=== PATIENT | male | born 1960 | race Caucasian/White ===

== ENCOUNTER → 2020-07-04 | Outpatient (CLI) | payer BC ==
--- NOTE | 2020-07-04 14:19 | REP ---
INDICATION: PAIN RIGHT HIP. COMPARISON: None. TECHNIQUE: AP pelvis, AP and frogleg views right hip. FINDINGS: There is no acute fracture or dislocation. There are moderately severe arthritic changes of the right hip joint with moderately severe superior joint space narrowing with associated subchondral sclerosis. Moderate spurring. There is relatively mild arthritic change at the left hip joint with mild joint space narrowing, subchondral sclerosis and spurring. 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 A phlebolith is seen in the left pelvis. IMPRESSION: Moderately severe arthritic changes right hip joint. Mild arthritic changes left hip point. <Electronically signed by Cresencio Ardon > 07/04/20 0569
== END ==
LOC: M SOG 13:30
PROVIDERS: ATTEND Family Medicine
DX: M16.0 Bilateral primary osteoarthritis of hip (principal)

== ENCOUNTER → 2021-02-14 | Outpatient (REF) | payer BC | LOC: M LAB REF 17:20 | PROVIDERS: ATTEND Physician Assistant | DX: D22.5 Melanocytic nevi of trunk (principal) ==

== ENCOUNTER → 2022-07-29 | Outpatient (CLI) | payer BC | LOC: M SOG 08:05 | PROVIDERS: ATTEND Orthopaedic Surgery | DX: M25.551 Pain in right hip (principal); Z53.8 Procedure and treatment not carried out for other reasons ==

== ENCOUNTER → 2024-04-27 | Outpatient (CLI) | payer BC | LOC: M SOG 07:45 | PROVIDERS: ATTEND Physician Assistant | DX: M70.71 Other bursitis of hip, right hip (principal) ==

== ENCOUNTER → 2024-05-04 | Outpatient (CLI) | payer BC | LOC: M PLAIMG 10:12 | PROVIDERS: ATTEND Physician Assistant | DX: M16.31 Unilateral osteoarthritis resulting from hip dysplasia, right hip (principal); M87.851 Other osteonecrosis, right femur; M25.451 Effusion, right hip; M67.451 Ganglion, right hip ==

== ENCOUNTER → 2024-11-17 | Outpatient (CLI) | payer BC ==
[~2024-11-17] MED LIST: AMLO1TAB24; LISI10TA24; LISI20TA33; RELU120T PO; TADA10TA
== END ==
LOC: M ONCR 10:59
PROVIDERS: ATTEND General Practice
DX: C61 Malignant neoplasm of prostate (principal); N52.31 Erectile dysfunction following radical prostatectomy; Z72.89 Other problems related to lifestyle; Z79.818 Long term (current) use of other agents affecting estrogen receptors and estrogen levels; Z90.79 Acquired absence of other genital organ(s)

== ENCOUNTER 2024-12-20 11:15 | Outpatient (RCR) | payer BC ==
[~2024-12-20 11:15] MED LIST changes: -RELU120T PO
[2024-12-27] MEDS ORDERED: RELU120T PO (08:56)
== END 2024-12-24 ==
LOC: M PT 11:15
PROVIDERS: ATTEND Physician Assistant
DX: M16.11 Unilateral primary osteoarthritis, right hip (principal); Z96.641 Presence of right artificial hip joint

== ENCOUNTER → 2025-01-23 | Outpatient (RCR) | payer BC ==
[~2025-01-23] MED LIST changes: +RELU120T PO
== END ==
LOC: M ONCR 12-26 13:51
PROVIDERS: ATTEND General Practice
DX: Z51.0 Encounter for antineoplastic radiation therapy (principal); C61 Malignant neoplasm of prostate

== ENCOUNTER → 2025-02-23 | Outpatient (RCR) | payer BC | LOC: M ONCR 01-24 10:12 | PROVIDERS: ATTEND General Practice | DX: Z51.0 Encounter for antineoplastic radiation therapy (principal); C61 Malignant neoplasm of prostate ==

== ENCOUNTER 2025-04-16 11:24 | Outpatient (RCR) | payer BC | END 2025-04-25 | LOC: M PT 11:24 | PROVIDERS: ATTEND Student in an Organized Health Care Education/Training Program | DX: M16.12 Unilateral primary osteoarthritis, left hip (principal); Z47.89 Encounter for other orthopedic aftercare ==

== ENCOUNTER → 2025-04-25 | Outpatient (CLI) | payer BC | LOC: M PLAIMG 11:42 | PROVIDERS: ATTEND Family Medicine | DX: Z96.643 Presence of artificial hip joint, bilateral (principal) ==